=== PATIENT | female | born 1940 | race Caucasian/White ===

== ENCOUNTER 2017-11-08 17:08 | Emergency (ER) | payer OTHER ==
[~2017-11-08] VITALS: Ht 172.7 cm; Wt 108.3 kg
[2017-11-08 17:54] LABS: HEMATOCRIT 39.9 % (36.0-46.0); HEMOGLOBIN 13.3 G/DL (11.9-15.5); MCH 30.9 PG (29.0-34.0); MCHC 33.3 G/DL (30.0-36.0); MCV 92.8 FL (83-99); PLATELET COUNT 223 K/uL (156-360); RBC DIS.WIDTH-CV 15.2 % (11.8-14.6); RBC DIS.WIDTH-SD 51.3 % (39-53); WHITE BLOOD COUNT 12.6 K/uL (4.1-10.2)
[2017-11-08 18:12] LABS: ALBUMIN 4.2 g/dL (3.2-4.8); CHLORIDE 106 mEq/L (99-109); POTASSIUM 4.3 mEq/L (3.7-5.4); SODIUM 140 mEq/L (136-147)
[2017-11-08 18:14] LABS: GLUCOSE 190 mg/dL (70-99)
[2017-11-08 18:15] LABS: TOTAL PROTEIN 7.8 g/dL (6.4-8.3)
[2017-11-08 18:16] LABS: TOTAL BILIRUBIN 0.4 mg/dL (0.0-1.0)
[2017-11-08 18:18] LABS: ALKALINE PHOSPHATASE 96 IU/L (3-129); CREATININE 1.1 mg/dL (0.6-1.3); GFR ESTIMATE (CALCULATED) 51 mL/min/
[2017-11-08 18:19] LABS: UREA NITROGEN (BUN) 17 mg/dL (9-23)
[2017-11-08 18:20] LABS: AST (GOT) 24 IU/L (2-34); DIRECT BILIRUBIN 0.2 mg/dL (0.0-0.3)
[2017-11-08 18:21] LABS: ALT (GPT) 28 IU/L (3-49); LIPASE 33 U/L (1.0-51.0)
[2017-11-08 18:28] LABS: TROP-I INTERPRETATION NEGATIVE; TROPONIN-I 0.03 ng/mL (0.0-0.30)
[2017-11-08] MEDS ORDERED: LEVAQUIN750 MG PO (21:15)
[2017-11-08] MEDS ORDERED: PERCOCET 5/31 TABLET PO (21:15)
[2017-11-08] MEDS ORDERED: ZOFRAN4 MG PO (21:15)
[2017-11-08] MEDS ORDERED: FLOMAX0.4 MG PO (21:15)
[2017-11-08 21:19] LABS: APPEARANCE CLEAR ((CLEAR)); BILIRUBIN NEGATIVE; BLOOD SMALL; COLOR YELLOW ((YELLOW)); GLUCOSE (STRIP) NEGATIVE; KETONES 5; LEUKOCYTES NEGATIVE; NITRITE NEGATIVE; PROTEIN (STRIP) 30; SPECIFIC GRAVITY 1.019 (1.000-1.030); UROBILINOGEN 0.2 MG/DL (0.2-1.0)
[2017-11-08 21:29] LABS: BACTERIA NONE SEEN /HPF; EPITHELIAL CELLS RARE /HPF; MUCUS NONE SEEN /LPF; RED BLOOD CELLS 15-20 /HPF (0-5); UCUL ADDED? NO; WHITE BLOOD CELLS 0-5 /HPF (0-5)
[2017-11-08 21:52] VITALS: BP 138/76
== END 2017-11-08 21:54 | disposition home or self-care (01) ==
LOC: EME 17:08
PROVIDERS: Emergency Medicine
DX: N13.2 Hydronephrosis with renal and ureteral calculous obstruction (principal)
CPT/HCPCS: 71045; 74177; 80048; 80076; 81003; 83690; 84484; 85027; 87086; 93005; 99281; 99285; J1885; J2405; J7030